=== PATIENT | female | born 1980 | race Caucasian/White ===

== ENCOUNTER 2017-05-21 15:21 | Emergency (ER) | payer OTHER ==
[2017-05-21 15:31] VITALS: BP 145/82; PULSE 117; RESP 18; TEMP 99.2
--- NOTE | 2017-05-21 15:50 | ED ---
General Adult HPI - General Chief complaint: Wound/Laceration Stated complaint: insect bite left arm Time Seen by Provider: 05/21/17 15:29 Source: patient, RN notes reviewed Mode of arrival: ambulatory Limitations: no limitations - History of Present Illness Initial comments: Patient 37-year-old female who presents emergency room today with a chief complaint of a abscess located to the left forearm. States this started as a small insect bite a few days ago. States his gout larger in size. Denies any drainage or discharge. States. Tender locally. Denies any other complaints or symptoms. Patient denies any recent fever, chills, shortness of breath, chest pain, back pain, abdominal pain, nausea or vomiting, numbness or tingling , dysuria or hematuria, constipation or diarrhea, headaches or visual changes, or any other complaints. - Related Data Previous Rx's Medication Instructions Recorded Amoxic-Pot Clav 875-125Mg 1 each PO Q12HR #10 tablet 04/12/15 [Augmentin Xr 875-125] Hydrocodone/Acetaminophen [[place] 1 - 2 each PO Q6HR PRN #30 tab 04/12/15 5-325] Cephalexin [Keflex] 500 mg PO Q12HR 10 Days 05/21/17 Allergies Allergy/AdvReac Type Severity Reaction Status Date / Time sulfamethoxazole Allergy Anaphylaxis Verified 05/21/17 15:31 [From ] trimethoprim [From ] Allergy Anaphylaxis Verified 05/21/17 15:31 Review of Systems ROS Statement: Those systems with pertinent positive or pertinent negative responses have been documented in the HPI. ROS Other: All systems not noted in ROS Statement are negative. Past Medical History Past Medical History: No Reported History Additional Past Medical History / Comment(s): exema History of Any Multi-Drug Resistant Organisms: None Reported Past Surgical History: No Surgical Hx Reported Past Anesthesia/Blood Transfusion Reactions: No Reported Reaction Past Psychological History: Anxiety, Panic Disorder Smoking Status: Current every day smoker Past Alcohol Use History: Rare Past Drug Use History: Marijuana - Past Family History Father Family Medical History: No Reported History Mother Family Medical History: Osteoarthritis (OA) General Exam - General Exam Comments Initial Comments: General: The patient is awake and alert, in no distress, and does not appear acutely ill. Eye: Pupils are equal, round and reactive to light, extra-ocular movements are intact. No nystagmus. There is normal conjunctiva bilaterally. No signs of icterus. Ears, nose, mouth and throat: There are moist mucous membranes and no oral lesions. Neck: The neck is supple, there is no tenderness or JVD. Cardiovascular: There is a regular rate and rhythm. No murmur, rub or gallop is appreciated. Respiratory: Lungs are clear to auscultation, respirations are non-labored, breath sounds are equal. No wheezes, stridor, rales, or rhonchi. Musculoskeletal: Normal ROM, no tenderness. Strength 5/5. Sensation intact. Pulses equal bilaterally 2+. Neurological: A&O x 3. CN II-XII intact, There are no obvious motor or sensory deficits. Coordination appears grossly intact. Speech is normal. Skin: Small abscess to the posterior aspect of the left forearm measures approximately 2 cm across. Ulcerated it's centrally. Psychiatric: Cooperative, appropriate mood & affect, normal judgment. Limitations: no limitations Course Vital Signs 05/21/17 15:29 Temperature 99.2 F Pulse Rate 117 H Respiratory 18 Rate Blood Pressure 145/82 O2 Sat by Pulse 99 Oximetry Procedures - Procedures Initial comment: Procedure: Incision and drainage The skin overlying the abscess was prepped with Betadine, and anesthetized with 1% lidocaine without epinephrine. A #11 scalpel was then used to incise the abscess. Some purulent material was then extracted from the lesion. Gauze dressing placed on top, The patient tolerated the procedure well. Disposition Clinical Impression: Abscess Disposition: HOME SELF-CARE Condition: Good Instructions: Abscess (ED) Additional Instructions: Please use warm compresses to the area at least 4 times daily for 15-20 minutes at a time. Please use antibiotic as prescribed. Please return to emergency room if symptoms increase or worsen or for new concerns. Prescriptions: Cephalexin [Keflex] 500 mg PO Q12HR 10 Days Referrals: None,Stated [Primary Care Provider] - 1-2 days Time of Disposition: 15:48
== END 2017-05-21 16:05 | disposition home or self-care (01) ==
LOC: EC 15:21
DX: L02.414 Cutaneous abscess of left upper limb (principal); F17.200 Nicotine dependence, unspecified, uncomplicated; Z88.8 Allergy status to other drugs, medicaments and biological substances
CPT/HCPCS: 10060; 99281

== ENCOUNTER 2017-06-20 13:30 | Emergency (ER) | payer OTHER ==
[2017-06-20 13:59] VITALS: BP 141/88; PULSE 100; RESP 20
[2017-06-20] MEDS ORDERED: HYDROcodone/APAP 5-325MG 1 EACH TAB PO STA (14:34)
--- NOTE | 2017-06-20 14:42 | ED ---
Skin/Abscess/FB HPI - General Chief complaint: Skin/Abscess/Foreign Body Stated complaint: poss spider bite-revisit Time Seen by Provider: 06/20/17 14:14 Source: patient Mode of arrival: ambulatory Limitations: no limitations - History of Present Illness Initial comments: 37-year-old female patient percents to emergency department today for evaluation of left elbow pain, redness, and swelling. Patient states around 5 days ago she had what appeared to be a pimple to the area, states that since then it has increased in size, but he has become more reddened, and has started draining pus. She states that she has pain with flexion and extension of her elbow. She states that the pain is constant, she states it is very tender to touch. States even clothing lying against that causes the pain to increase. She states that she is also started to develop some lumps in her left axilla however there is no head or drainage from these areas. She states that she has had abscesses before. She denies any history of MRSA. She states she has not checked her temperature however has had some sweats sociably she may have had a fever. Patient denies any recent shortness breath, chest pain, abdominal pain, nausea, vomiting, diarrhea, constipation, back pain, numbness, tingling, headache, visual changes, hematuria, dysuria, urinary frequency, urinary urgency , or any other complaints. - Related Data Previous Rx's Medication Instructions Recorded Amoxic-Pot Clav 875-125Mg 1 each PO Q12HR #10 tablet 04/12/15 [Augmentin Xr 875-125] Hydrocodone/Acetaminophen [[place] 1 - 2 each PO Q6HR PRN #30 tab 04/12/15 5-325] Cephalexin [Keflex] 500 mg PO Q12HR 10 Days 05/21/17 Clindamycin HCl [Cleocin] 450 mg PO Q6H #84 cap 06/20/17 Hydrocodone/Acetaminophen [[place] 1 tab PO Q6HR PRN #15 tab 06/20/17 5-325] Mupirocin 2% Oint [Bactroban 2% 1 applic NASAL BID #15 gm 06/20/17 Oint] Allergies Allergy/AdvReac Type Severity Reaction Status Date / Time sulfamethoxazole Allergy Anaphylaxis Verified 06/20/17 13:59 [From ] trimethoprim [From Septra] Allergy Anaphylaxis Verified 06/20/17 13:59 Review of Systems ROS Statement: Those systems with pertinent positive or pertinent negative responses have been documented in the HPI. ROS Other: All systems not noted in ROS Statement are negative. Past Medical History Past Medical History: No Reported History Additional Past Medical History / Comment(s): exema History of Any Multi-Drug Resistant Organisms: None Reported Past Surgical History: No Surgical Hx Reported Past Anesthesia/Blood Transfusion Reactions: No Reported Reaction Past Psychological History: Anxiety, Panic Disorder Smoking Status: Current every day smoker Past Alcohol Use History: Rare Past Drug Use History: Marijuana - Past Family History Father Family Medical History: No Reported History Mother Family Medical History: Osteoarthritis (OA) General Exam Limitations: no limitations General appearance: alert, in no apparent distress, obese, other (Well-developed , well-nourished adult female who is in no acute distress. Vital signs upon presentation were temperature 99.0, pulse 100, respirations 20, blood pressure 141/88, pulse ox 98% on room air.) ENT exam: Present: normal exam, normal oropharynx, mucous membranes moist Neck exam: Present: normal inspection, full ROM. Absent: tenderness, meningismus, lymphadenopathy Respiratory exam: Present: normal lung sounds bilaterally. Absent: respiratory distress, wheezes, rales, rhonchi, stridor Cardiovascular Exam: Present: regular rate, normal rhythm, normal heart sounds. Absent: systolic murmur, diastolic murmur, rubs, gallop, clicks Extremities exam: Present: full ROM, tenderness (Left elbow tenderness surrounding the abscess area.), normal capillary refill, other (3 cm abscess with central area of drainage to the lateral aspect of the left elbow. There are also 3 nodules in the left axilla that are concerning for developing abscess. Mild erythema noted. No palpable lymph nodes appreciated.). Absent: normal inspection, pedal edema, joint swelling, calf tenderness Neurological exam: Present: alert, oriented X3, CN II-XII intact Psychiatric exam: Present: normal affect, normal mood Skin exam: Present: warm, dry, intact, normal color. Absent: rash Course Vital Signs 06/20/17 06/20/17 13:57 15:06 Temperature 99.0 F 98.8 F Pulse Rate 100 Respiratory 20 Rate Blood Pressure 141/88 O2 Sat by Pulse 98 Oximetry Medical Decision Making - Medical Decision Making 37-year-old female patient presented for evaluation of a lesion to her left elbow. Area does appear to be an abscess, however it is draining and does not require drainage at this time. Patient did have some other areas that were nonfluctuant but could also be developing abscesses to the left axillary region. She will be given a perception for clindamycin 150 mg 4 times daily for 7 days. She is ALLERGIC to Bactrim otherwise I would've chosen that therapy instead. She was also given topical mupirocin to apply twice daily. I also did give her pain medication. Instructed her to apply warm compresses to the area. She is instructed to follow-up with her primary care physician for recheck in 1-2 days. She is instructed to return here immediately for any new, worsening, or concerning symptoms. Patient verbalizes understanding and agrees with this plan. Disposition Clinical Impression: Abscess, Cellulitis Disposition: HOME SELF-CARE Condition: Good Instructions: Cellulitis (ED), Abscess (ED) Additional Instructions: Complete antibiotic prescription in full. Take medication for severe pain. Continue taking ibuprofen for anti-inflammatory effects. Follow up with her primary care physician for recheck in 1-2 days. Return here immediately for any new, worsening, or concerning symptoms. Prescriptions: Clindamycin HCl [Cleocin] 450 mg PO Q6H #84 cap Hydrocodone/Acetaminophen [[place] 5-325] 1 tab PO Q6HR PRN #15 tab PRN Reason: Pain Mupirocin 2% Oint [Bactroban 2% Oint] 1 applic NASAL BID #15 gm Referrals: None,Stated [Primary Care Provider] - 1-2 days Time of Disposition: 14:40
[2017-06-20 15:06] VITALS: TEMP 98.8
== END 2017-06-20 15:06 | disposition home or self-care (01) ==
LOC: EC 13:30
DX: L02.414 Cutaneous abscess of left upper limb (principal); L03.114 Cellulitis of left upper limb; E66.9 Obesity, unspecified; F17.200 Nicotine dependence, unspecified, uncomplicated; Z88.1 Allergy status to other antibiotic agents; Z68.41 Body mass index [BMI] 40.0-44.9, adult
CPT/HCPCS: 87070; 87077; 87186; 87205; 99283